=== PATIENT | male | born 1945 | race Two or more races ===

== ENCOUNTER 2019-08-18 09:41 | Outpatient (CLI) | payer OTHER | END 2019-08-18 11:05 | disposition home or self-care (01) | LOC: NUCLEAR 09:41 | DX: I10 Essential (primary) hypertension (principal) ==

== ENCOUNTER 2019-08-22 08:28 | Outpatient (CLI) | payer OTHER | END 2019-08-22 08:36 | disposition home or self-care (01) | LOC: RAD 08:28 | DX: R10.84 Generalized abdominal pain (principal) ==

== ENCOUNTER 2019-08-24 10:34 | Outpatient (CLI) | payer OTHER | END 2019-08-24 10:46 | disposition home or self-care (01) | LOC: LAB 10:34 | DX: N20.0 Calculus of kidney (principal) ==

== ENCOUNTER 2019-08-26 08:57 | Outpatient (CLI) | payer OTHER | END 2019-08-26 09:18 | disposition home or self-care (01) | LOC: TOM 08:57 | DX: J44.9 Chronic obstructive pulmonary disease, unspecified (principal); K85.90 Acute pancreatitis without necrosis or infection, unspecified | CPT/HCPCS: 71260; 74183; A9575; 74181 ==